=== PATIENT | female | born 1945 | race Caucasian/White ===

== ENCOUNTER → 2021-12-31 | Outpatient (CLI) | payer MEDICARE, BC ==
[~2021-12-31] MED LIST: ASCO500 PO; ASPI325 PO; ASPI81EC PO; ATOR40TA PO; BUPR150ER PO; CALCIUM PO; CHOL10002 PO; COLE1 PO; CYAN500 PO; Celebrex200 MG PO; DOCU100 PO; ESTRADIOL PO; Flonase 0.05% N16 GM; METO25ER PO; NAPR500 PO; OMEGA FISH OIL PO; OMEP40CA12 PO; PYRI100 PO; Prinivil10 MG PO; ROSU10TA PO; VITAMIN D PO
[2022-01-02 13:20] LABS: Stool Occult Bld Immuno 1 Positive (NEGATIVE); Stool Occult Bld Immuno 2 Positive (NEGATIVE); Stool Occult Bld Immuno 3 Negative (NEGATIVE)
== END | disposition home or self-care (01) ==
LOC: LAB SHORT 09:12
PROVIDERS: Physician Assistant
DX: K92.1 Melena (principal)
CPT/HCPCS: 82274

== ENCOUNTER 2022-02-21 08:25 | Day surgery (SDC) | payer MEDICARE, BC ==
[~2022-02-21] VITALS: Ht 157.5 cm; Wt 65.8 kg
[~2022-02-21 08:25] MED LIST changes: -ASPI325 PO; +Aspir 8181 MG PO; -COLE1 PO; +COLESTID1 G1 PO
[2022-02-21] MEDS ORDERED: CLOP75 PO (09:00)
--- NOTE | 2022-02-21 11:11 | NUR ---
PT BACK TO RECOVERY ROOM VIA BED, REPORT FROM DEANNA GALVEZ. PT AWAKE, DENIES CURRENT PAIN OR NEEDS. VSS. RIGHT FEMORAL SITE SOFT AND NON-TENDER. DAUGHTER AT BEDSIDE.
--- NOTE | 2022-02-21 11:38 | NUR ---
DR SCHMIDT AT BEDSIDE SPEAKING WITH PT AND DAUGHTER ABOUT RESULTS OF ANGIOGRAM.
--- NOTE | 2022-02-21 12:36 | NUR ---
PT EATING LUNCH, HEAD OF BED ELEVATED TO 30 DEGREES. DAUGHTER REMAINS AT BEDSIDE. CALL LIGHT IN REACH
--- NOTE | 2022-02-21 13:45 | NUR ---
pt given dc instructions and verbalized understanding. pt ambulated to restroom. femoral site soft and non-tender. no bleeding noted. pt changed into clothes. iv out. pt taken to parking lot via [place]. daughter to take pt home.
== END 2022-02-21 13:50 | disposition home or self-care (01) ==
LOC: MHTC 08:25
DX: I65.21 Occlusion and stenosis of right carotid artery (principal); I70.90 Unspecified atherosclerosis; I15.9 Secondary hypertension, unspecified; J44.9 Chronic obstructive pulmonary disease, unspecified; G60.9 Hereditary and idiopathic neuropathy, unspecified; E78.5 Hyperlipidemia, unspecified; Z87.891 Personal history of nicotine dependence; Z88.5 Allergy status to narcotic agent; Z88.8 Allergy status to other drugs, medicaments and biological substances; Z79.82 Long term (current) use of aspirin; Z79.899 Other long term (current) drug therapy
CPT/HCPCS: 76937; 99152; 99153; C1760; C1769; C1894; J0360; J1644; J2250; J3010; J7030; J7040; Q9967

== ENCOUNTER 2025-01-08 08:36 | Emergency (ER) | payer MEDICARE ==
[~2025-01-08] VITALS: Ht 157.5 cm; Wt 62.6 kg
[~2025-01-08 08:36] MED LIST changes: +CLOP75 PO
[2025-01-08] MEDS ORDERED: MECL25 PO (10:42)
[2025-01-08 11:00] VITALS: BP 151/66
== END 2025-01-08 11:03 | disposition home or self-care (01) ==
LOC: ER 08:36
DX: H81.12 Benign paroxysmal vertigo, left ear (principal); I10 Essential (primary) hypertension; E78.5 Hyperlipidemia, unspecified; M19.90 Unspecified osteoarthritis, unspecified site; Z88.5 Allergy status to narcotic agent; Z79.899 Other long term (current) drug therapy
CPT/HCPCS: 99283